=== PATIENT | male | born 2000 | race Two or more races ===

== ENCOUNTER 2020-08-25 15:01 | Outpatient (REF) | payer OTHER, SELFPAY | END 2020-08-25 15:02 | disposition home or self-care (01) | LOC: HO.LAB 15:01 | PROVIDERS: PCP Pediatrics; Visit Provider Internal Medicine | DX: Z20.828 Contact with and (suspected) exposure to other viral communicable diseases (principal) | CPT/HCPCS: 36415; 87635 ==

== ENCOUNTER 2023-11-26 | Outpatient (REF) | payer OTHER, SELFPAY | END 2023-11-26 00:01 | disposition home or self-care (01) | LOC: HO.HMGCLNP | PROVIDERS: Visit Provider Internal Medicine | DX: R43.9 Unspecified disturbances of smell and taste (principal); Z11.52 Encounter for screening for COVID-19; Z20.828 Contact with and (suspected) exposure to other viral communicable diseases | CPT/HCPCS: 0241U ==

== ENCOUNTER 2023-11-26 12:24 | Outpatient (AMB) | payer OTHER, SELFPAY ==
--- NOTE | 2023-11-26 15:24 | MHC.OFFWIV ---
Intake Vital Signs 11/26/23 15:34 Height 5 ft 7 in Weight 176 lb BMI 27.6 BP 138/88 Blood Pressure Location Rt brachial Position Sitting Pulse 98 Pulse Source Pulse Oximeter Temp 98.8 F Temp Source Oral Pulse Oximetry (%) 98 Oxygen Delivery Method Room Air Intake Visit Reasons: EP night sweats swollen glands [id number] Intake Note: Pt is for swollen glands, fevers, and feeling light headed. Pt states it started November 24. Patient Tobacco Use Status: Never used Tobacco Allergies No Known Allergies [No Known Allergies*] Allergy (Verified 11/26/23 15:43) Medication List - Last Reconciled 11/26/23 by Glenn Zelaya MD No Known Home Meds Do you need a note to return to daycare/school/sports/work: Yes HPI EP night sweats swollen glands [id number] HPI Details Patient presents for a sick visit. Reporting symptoms of sinus congestion, sore throat and difficulty swallowing. Low-grade fever. No family member is sick. No recent travel. Patient reports symptoms of malaise and fatigue. PFSH Social History Patient Tobacco Use Status: Never used Tobacco Physical Exam Vital Signs: Last Vital Signs Temp 98.8 F 11/26/23 15:34 Pulse 98 11/26/23 15:34 BP 138/88 11/26/23 15:34 Pulse Ox 98 11/26/23 15:34 Oxygen Delivery Method Room Air 11/26/23 15:34 BMI result Body Mass Index 27.6 Const General: cooperative and healthy appearing Nutritional Appearance: well nourished Orientation/consciousness: patient oriented x3 Limitations: no limitations HEENT Head: Yes normal to inspection Eyes General: appearance normal, both eyes and all related structures Neck Neck: Yes normal visual inspection Chest Chest palpation & inspection: normal palpation of entire chest wall Resp Effort & Inspection: normal respiratory effort Neuro General: patient oriented x3 Assessment & Plan Assessment & Plan (1) Upper respiratory tract infection: Code(s): J06.9 - Acute upper respiratory infection, unspecified Plan: Antibiotics ordered. Increase fluid intake. Tylenol for aches and pains. If symptoms worsen, follow-up here for a recheck. Coding Level of Care Code Est Pt Level 3 (57731) Diagnoses Upper respiratory tract infection J06.9
[2023-11-26 15:34] VITALS: BP 138/88; PULSE 98; TEMP 37.1; O2SAT 98; BMI 27.6
== END 2023-11-26 16:08 | disposition home or self-care (01) ==
PROVIDERS: PCP Pediatrics; Visit Provider Internal Medicine
DX: J06.9 Acute upper respiratory infection, unspecified (principal)
CPT/HCPCS: 99213

== ENCOUNTER 2024-12-01 12:23 | Outpatient (AMB) | payer OTHER, SELFPAY ==
--- NOTE | 2024-12-01 12:24 | A.OFFPC_ITS ---
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 Accompanied by: Self / Same As Patient Allergies No Known Allergies [No Known Allergies*] Allergy (Verified 12/01/24 13:26) Medication List - Last Reconciled 12/01/24 by MY Anthony No Known Home Meds Tobacco use date assessed: 12/01/24 Dental Screening Dental Screen Date: 12/01/24 Did you have a dental visit in the last 12 months?: Yes Did you have a dental problem in the last 6 months where you did not have access to dental care?: No Was dental information given to patient?: Patient has dentist HPI ASSISTANT MANAGER TRAINEE- PE request HPI Details History of Present Illness The patient is a 24-year-old male presenting with headaches. The headaches have been occurring intermittently over the past two years. The patient describes the sensation as pressure throughout his entire head, which he points to as a generalized area of discomfort. The headaches are sporadic in nature, typically present in the morning, and lack a consistent pattern. Recently, the patient reported photophobia accompanying the headaches but denies associated nausea, vomiting, or sonophobia. The patient observed an increase in frequency correlated with increased vaping activity and is attempting to cease vaping as a result. He has undergone a recent eye examination, and no ocular causes were identified. Previous medical consultations have suggested possible migraines but there has been no imaging performed to date. Health Maintenance - Discussion on vaping cessation to redu ce headache incidence. Social History - The patient is attempting to quit vapi ng. Review of Systems Physical Exam General: Cooperative, healthy appearing, comfortable, no acute distress and well developed Orientation: Patient oriented x3 Limitations: No limitations Head: intact bilat Ears: Hearing grossly normal bilaterally Nose: Normal external nose present Face and sinus: Normal facial exam Eyes: Appearance normal, both eyes and all related structures. Recent eye exam reported as fine. Neck: Normal visual inspection and Yes full ROM Respiratory: Normal respiratory effort and able to speak in complete sentences. Clear to auscultation bilaterally Cardiovascular: Regular rate and rhythm. Normal S1 and S2 GI: Normal to inspection. Soft to palpation and nontender Skin: No rashes or lesions noted Neuro: Patient oriented x3. Reports photophobia sometimes with headaches. Cn 2- 12 intact, neg heel to levine, finger to thumb, neg rhomberg, neg arm pull test Extremities: Normal to inspection Results Plan - I will prescribe a low dose of Naproxe n to be taken as needed for headache management. - A CT scan of the brain will be ordered to evaluate potential causes of the headaches. Patient was informed and verbally consented to the use of an ambient scribe for clinic note documentation during this visit. Discussion Notes I discussed with the patient the likely diagnosis of migraines and the management strategies we can employ. We explored the option of Naproxen for symptomatic relief, considering the patient's report of photophobia, yet absence of nausea and vomiting, which aligns with migraine characteristics. I educated the patient on the exacerbating impact of vaping on his headaches and strongly encouraged cessation, detailing the potential benefits for his condition. We agreed on the necessity of imaging, such as a CT scan, to further assess the headaches and exclude other potential concerns. The patient was informed about the follow-up for discussing the imaging results and further management based on findings. Patient Instructions - Begin taking Naproxen as needed for he adache relief. - Reduce or eliminate vaping to observe any changes in headache frequency. - Follow up for a scheduled CT scan to i nvestigate the cause of headaches. - Keep a headache diary to monitor frequ ency, duration, and triggers. [facility] Surgical History [place] teeth extracted Family History Father Hypertension Pre-diabetes Mother No problems noted. Social History Housing: Condominium Patient Tobacco Use Status: Never used Tobacco e-Cigarette/Vaping Use: Currently Using service: No Current occupational status: employed Cognitive needs: No Hearing needs: No Vision needs: No Questionnaire PHQ-9 Over the last 2 weeks, how often have you been bothered by any of the following problems? 1. Little interest or pleasure in doing things: not at all 2. Feeling down, depressed, or hopeless: not at all 3. Trouble falling or staying asleep, or sleeping too much: more than half the days 4. Feeling tired or having little energy: several days 5. Poor appetite or overeating: several days 6. Feeling bad about yourself - or that you are a failure or have let yourself or your family down: not at all 7. Trouble concentrating on things, such as reading the newspaper or watching television: not at all 8. Moving or speaking so slowly that other people could have noticed. Or the opposite - being so fidgety or restless that you have been moving around a lot more than usual: not at all 9. Thoughts that you would be better off or of hurting yourself in some way: not at all Total score: 4 Depression Screening Interpretation: Negative Depression Screening Done: Yes 84922 - PHQ-9 Billing: Yes Source: Developed by Drs. Emmett High, Edie Calvo, Tavo Groves and colleagues, with an educational nereida from [employer]. Thrive Questionnaire Date Thrive assessed: 12/01/24 I am a: Patient What is your living situation today?: I have a steady place to live Within the past 12 months, did the food you bought not last and you didn't have the money to get more?: Never true Within the past 12 months, did you worry whether your food would run out before you got money to buy more?: Never true Do you have trouble paying for medicines?: I choose not to answer this question Do you have trouble getting transportation to medical appointments?: No Do you have trouble paying your heating and electricity bill?: No Do you have trouble taking care of your child, family member or friend?: No Do you have trouble with day-to-day activities such as bathing, preparing meals, shopping, managing finances, etc.?: No Are you currently unemployed and looking for a job?: No Are you interested in more education?: No Please select the resources that you would like help with: None Currently or been in a relationship where the following occur: No concerns reported THRIVE Score: 0 AUDIT C Alcohol Use Questionnaire (AUDIT-C) 1. How often do you have a drink containing alcohol?: 2-4 times a month 2. How many drinks containing alcohol do you have on a typical day when you are drinking?: 3 or 4 3. How often do you have six or more drinks on one occasion?: Less than monthly Total Score: 4 Score Reviewed/Action Taken: Yes MARYELLEN-7 AMB Questionnaire MARYELLEN-7 Date MARYELLEN - 7 assessed: 12/01/24 Feeling nervous, anxious, or on edge: 1 = Several days Not being able to stop or control worryin = Several days Worrying too much about different things: 3 = Nearly every day Trouble relaxin = Several days Being so restless that it is hard to sit still: 0 = Not at all Becoming easily annoyed or irritable: 1 = Several days Feeling afraid as if something awful might happen: 1 = Several days Total MARYELLEN-7 score (0-4 normal; 5-9 mild; 10-14 moderate; 15-21 severe): 8 Source: Developed by Drs. Emmett High, Edie Calvo, Tavo Groves and colleagues, with an educational nereida from [employer]. MARYELLEN-7 Assessment Billing MARYELLEN-7 Assessment Tool: MARYELLEN-7 Assessment 49458 Physical exam (Primary Care) Vital Signs: Last Vital Signs Pulse 97 12/01/24 12:25 BP 118/76 12/01/24 12:25 Pulse Ox 88 L 12/01/24 12:25 Oxygen Delivery Method Room Air 12/01/24 12:25 BMI result Body Mass Index 31.2 Tobacco/Smoking Status: Tobacco use Status Tobacco use date assessed 12/01/24 12/01/24 12:31 Patient Tobacco Use Status Never used Tobacco 12/01/24 12:31 e-Cigarette/Vaping Use Currently Using 12/01/24 12:31 PHQ-9: PHQ-9 Score PHQ-9: Total score 4 12/01/24 12:57 Depression Screening Interpretation: Negative Thrive Assessment: Date of Thrive Assessment Date Thrive assessed 12/01/24 12/01/24 12:31 Currently or been in a relationship where the following occur: No concerns reported Office Procedures Flu Questionnaire Does the patient have a severe egg allergy?: No Does the patient have severe life threatening allergies?: No Does the patient have a fever or illness today?: No Has the patient ever had Guillain-[place] Syndrome?: No Has the patient ever had any past reaction to a flu shot?: No Immunizations Fluarix Triv [id number] (PF) 45 mcg (15 mcg x 3)/0.5 mL IM syringe Performing Provider: URSZULA Anthony [place]forming Location[place] [facility] Administered by: Samuel Iraheta CMA on 12/01/24 13:14 Dose Route Admin Location Dispensed Lot Number Expiration Date [employer] 0.5 mL IM Left Deltoid 0.5 mL [id number] 05/24/25 [id number] [place] VIS Given Date VIS Provided VIS Publication Date 12/01/24 Single Vaccine 21 Eligibility Eligibility Date Funding Source Not [facility] Eligible 12/01/24 Private Coding Level of Care Code New Pt Prev Care 18-39yr(86036 Diagnoses Physical exam Z00.00 Headache R51.9 Additional Codes MARYELLEN-7 Assessment Billing - MARYELLEN-7 Assessment Tool: MARYELLEN-7 Assessment 99462 ([id number]) PHQ-9 - 05806 - PHQ-9 Billing: Yes ([id number]) Assessment & Plan Assessment & Plan (1) Physical exam: Code(s): Z00.00 - Encounter for general adult medical examination without abnormal findings Category: Medical (2) Headache: Code(s): R51.9 - Headache, unspecified Category: Medical Plan . Orders: Orders Complete Blood Count Auto Diff Today Z00.00 - Encounter for general adult medical examination without abnormal findings Comprehensive [place]. Panel Fast Today Z00.00 - Encounter for general adult medical examination without abnormal findings TSH reflex Free T4 Today Z00.00 - Encounter for general adult medical examination without abnormal findings UA CC w/rflx Micro + Cult Today Z00.00 - Encounter for general adult medical examination without abnormal findings CT head/brain wo IV con Today R51.9 - Headache, unspecified Lipid Panel Today Z00.00 - Encounter for general adult medical examination without abnormal findings Influenza [id number] Immunization Today Z23 - Encounter for immunization Medications: New naproxen 500 mg PO BID 30 days PRN 60 tabs 0RF headache
[2024-12-01 12:25] VITALS: BP 118/76; PULSE 88; O2SAT 98; BMI 31.2
== END 2024-12-01 13:22 | disposition home or self-care (01) ==
PROVIDERS: PCP Nurse Practitioner Family; Visit Provider Nurse Practitioner Family
DX: Z00.00 Encounter for general adult medical examination without abnormal findings (principal); R51.9 Headache, unspecified; Z23 Encounter for immunization

== ENCOUNTER → 2024-12-01 12:23 | Outpatient (BNVA) | payer OTHER, SELFPAY | PROVIDERS: PCP Nurse Practitioner Family; Visit Provider Nurse Practitioner Family | DX: Z00.00 Encounter for general adult medical examination without abnormal findings (principal); R51.9 Headache, unspecified; Z23 Encounter for immunization | CPT/HCPCS: 90471; 90656; 96127; 99385 ==

== ENCOUNTER 2024-12-07 01:13 | Emergency (ER) | payer OTHER, SELFPAY ==
[2024-12-07 01:19] VITALS: BP 121/59; PULSE 88; RESP 18; TEMP 36.6; O2SAT 99; BMI 30.5
--- NOTE | 2024-12-07 01:32 | ED_ITS ---
HPI - General Adult General Chief complaint: Eye Problems Stated complaint: right eye pain and obstruction Time Seen by Provider: 12/07/24 01:32 History of Present Illness ED Provider: Hever ARITA narrative: The patient is a 24-year-old male who has been concerned about his eyes for several weeks or even maybe months. He has had multiple complaints including light sensitivity, a sense of floaters, a sense of generalized eye discomfort, sometimes a sense of something being in the eye. He also said ?I feel my right eye is loose. ? He saw an hvac mechanical engineer in the last couple of weeks who could find no problem. Today he was looking at his right eye and he thought that there was an area of indentation of the conjunctiva of the medial aspect of the right eye. He was very concerned about this and came to the emergency room. He also says that he feels like something must be wrong with the eye and that perhaps something is in the eye although he does not recall getting anything in the eye. The patient has also had headaches. He recently obtained a new primary care doctor. He had a new patient appointment with Caleb Matos last week who has an ordered a CT of the brain to be done sometime in the next couple of weeks. Related Data Previous Rx's ?Medication ?Instructions ?Recorded naproxen 500 mg tablet 500 mg PO BID PRN headache 30 days 12/01/24 #60 tabs Allergies Allergy/AdvReac Type Severity Reaction Status Date / Time No Known Allergies Allergy Verified 12/07/24 01:22 [No Known Allergies*] Review of Systems Review of Systems: Yes all other systems are reviewed and are negative PMFSH Past Medical History Surgical History [place] teeth extracted Family History Family History Father Hypertension Pre-diabetes Mother No problems noted. Social History Social History Housing: Condominium Patient Tobacco Use Status: Never used Tobacco Smoked in Last 30 Days: No e-Cigarette/Vaping Use: Currently Using Use of substances other than those prescribed or required for medical reasons: No Advance Directives: No Advance Directives Information Provided: Yes Do you have a plan to hurt others: No Plan service: No Current occupational status: employed Cognitive needs: No Hearing needs: No Vision needs: No Physical Exam ED Vital Signs: Vital Signs - 24 hr 12/07/24 01:19 12/07/24 02:20 12/07/24 02:24 Temperature 97.8 F 98.1 F 98.1 F Pulse Rate 88 74 74 Respiratory Rate 18 18 18 Blood Pressure 121/59 L 128/53 L 128/53 L Pulse Oximetry 99 97 97 Oxygen Delivery Method Room Air Room Air Room Air BMI result Body Mass Index 30.5 Const Other: The patient is awake and alert. He does not appear acutely ill. He has the appearance of an ordinarily healthy 24-year-old. HENMT Other: Face is symmetrical and unremarkable. No abnormalities to the face. Eyes Other: Pupils are round, equal, and reactive to light. Conjunctivae are clear. I do not appreciate any abnormality to the medial conjunctiva of the right eye. No conjunctival injection. No scleral icterus. Extraocular movements are intact. Funduscopic exam is normal. Visual acuity is 20/20 in both eyes. Slit-lamp exam did not reveal any obvious subtle abnormality to the conjunctiva. There was no perilimbal flushing. Corneas appeared clear. The anterior chamber appeared clear. Fluorescein staining revealed no corneal uptake. Right eye eyelid eversion revealed no foreign body. Neck Neck: Yes full ROM Resp Effort & Inspection: normal respiratory effort Skin Other: Skin is dry and unremarkable Neuro Other: The patient is awake and alert with a normal mental status. I felt he had a somewhat anxious affect. Pupils are round, equal, and reactive to light, extraocular movements are intact, the patient is 2020 bilaterally. Funduscopic exam is unremarkable. Face is symmetrical. Speech is clear. He moves his extremities normally. Gait is normal. He seems neurologically intact. Extrem Other: No peripheral edema Medications Administered Discontinued Medications Generic Name Dose Route Start Last Admin Trade Name Dequan PRN Reason Stop Dose Admin Fluorescein Sodium 1 strip 12/07/24 01:49 12/07/24 01:56 Fluorescein Sodium Strip EYE-BOTH 12/07/24 01:50 1 strip ONCE ONE Administration Tetracaine HCl 3 drop 12/07/24 01:49 12/07/24 01:56 Tetracaine Hcl 0.5% Oph [place] 5 Ml Drops EYE-BOTH 12/07/24 01:50 3 drop ONCE ONE Administration Medical Decision Making Medical Decision Making MDM Narrative: The patient is generally healthy 24-year-old who presents for evaluation of right eye symptoms that has been bothering him for some time. His vision is excellent. I do not find any abnormalities on his physical exam in the emergency room. There is no foreign body in the eye. I do not feel there is an acute ocular or ophthalmological emergency. I think he may be discharged to follow up with an medication manager. He was referred to Dr. Lewis. Discharge Plan Discharge Clinical Impression: Discomfort of right eye Patient Disposition: Home, Self-Care Additional Instructions: At the moment I am not finding anything obviously wrong with your right eye. Your vision seems quite good in both eyes. Please contact the ophthalmology office, Dr. Lewis's office, in the morning and schedule a follow up appointment for an evaluation by an medication manager. Return to the emergency room if significantly worse. Prescriptions: No Action naproxen 500 mg tablet 500 mg PO BID PRN (Reason: headache) 30 Days Qty: 60 0RF Referrals: Mirza Lewis [Physician] - (right eye symptoms) Interventions: ED Discharge Assessment Last Done: 12/07/24 02:24 Discharge Date/Time: 12/07/24 02:24 Print Language: Burmese
--- NOTE | 2024-12-07 01:43 | PC.NURSE ---
Provider to bedside for primary eval. Visual acuity performed 20/20 both eyes.
[2024-12-07] MEDS: Tetracaine HCl 0.5% Oph Sol 5 ML DROPS 3 DROP EYE-BOTH (01:56)
[2024-12-07] MEDS: Fluorescein Sodium STRIP 1 STRIP EYE-BOTH (01:56)
[2024-12-07 02:20] VITALS: BP 128/53; PULSE 74; RESP 18; TEMP 36.7; O2SAT 97
[2024-12-07 02:24] VITALS: BP 128/53; PULSE 74; RESP 18; TEMP 36.7; O2SAT 97
== END 2024-12-07 02:24 | disposition home or self-care (01) ==
PROVIDERS: Emergency Provider Emergency Medicine; PCP Nurse Practitioner Family
DX: H57.11 Ocular pain, right eye (principal); R51.9 Headache, unspecified
CPT/HCPCS: 99283; 99284

== ENCOUNTER 2024-12-17 10:41 | Outpatient (REF) | payer OTHER, SELFPAY ==
[2024-12-17 13:19] LABS: MANUAL DIFF FLAG NO
[2024-12-17 13:43] LABS: Basophils Percent Auto 0.7 % (0-2); Eosinophils Absolute Auto 0.2 X10*3/uL (0.0-0.4); Eosinophils Percent Auto 2.5 % (0-4); Hematocrit 46.7 % (42.0-52.0); Hemoglobin 15.4 g/dl (14.0-18.0); Imm Gran Abs Auto 0.01 X10*3/uL (0.00-0.03); Imm Gran Pct Auto 0.2 % (0.0-0.4); Lymphocytes Absolute Auto 2.4 X10*3/uL (1.2-4.9); Lymphocytes Percent Auto 40.8 % (20-40); Mean Corpuscular Hemoglobin 30.6 pg (27.0-33.0); Mean Corpuscular Volume 92.8 fL (80.0-98.0); Monocytes Absolute Auto 0.6 X10*3/uL (0.1-1.2); Monocytes Percent Auto 9.5 % (2-11); Neutrophils Absolute Auto 2.8 x10*3/uL (2.0-8.3); Neutrophils Percent Auto 46.3 % (45-73); Platelet Count 352 X10*3/uL (160-400); Red Blood Count 5.03 X10*6/uL (4.60-5.80); Red Cell Distribution Width 12.5 % (11.0-16.0)
[2024-12-17 13:53] LABS: Appearance Urine Clear; Color Urine Yellow; Glucose Urine UA Negative (Negative); Leukocyte Esterase Urine Negative (Negative); Nitrite Urine Negative (Negative); PH 6.5 (5.0-9.0); Urine Blood Negative (Negative); Urine Ketones Negative (Negative); Urine Protein Negative (Neg-Trace)
[2024-12-17 14:14] LABS: Alanine Aminotransferase 21 U/L (0-40); Albumin Level 4.6 g/dL (3.5-5.0); Alkaline Phosphatase 73 U/L (39-117); Anion Gap 10 (12-20); Aspartate Amino Transferase 27 U/L (5-37); Bilirubin Total 0.9 mg/dL (0.0-1.0); Blood Urea Nitrogen 13 mg/dL (9-16); Carbon Dioxide 27 mmol/L (22-29); Chloride 106 mmol/L (96-108); Cholesterol 180 mg/dL (<200); Estimated Glomerular Filt Rate > 60; Glucose Fasting 79 mg/dL (60-99); HDL Cholesterol 57 mg/dL (>40); LDL Cholesterol Calculated 110 mg/dL (<100); Sodium 139 mmol/L (135-145); Total Protein 7.7 g/dL (6.5-8.0); Triglycerides 65 mg/dL (<150)
[2024-12-17 14:17] LABS: TSH reflex Free T4 0.85 uIU/mL (0.32-4.0)
== END 2024-12-17 10:42 | disposition home or self-care (01) ==
LOC: HO.HMGCLDS 10:41
PROVIDERS: PCP Nurse Practitioner Family; Visit Provider Nurse Practitioner Family
DX: Z00.00 Encounter for general adult medical examination without abnormal findings (principal); Z13.9 Encounter for screening, unspecified
CPT/HCPCS: 36415; 80053; 80061; 81003; 84443; 85025

== ENCOUNTER 2025-04-05 12:58 | Outpatient (AMB) | payer OTHER, SELFPAY ==
[2025-04-05 12:59] VITALS: BP 118/62; PULSE 77; O2SAT 98; BMI 31.3
--- NOTE | 2025-04-05 12:59 | MHC.PC.OV ---
Vital Signs 04/05/25 12:59 Height 5 ft 7 in Weight 200 lb BMI 31.3 BP 118/62 Blood Pressure Location Rt brachial Position Sitting Pulse 77 Pulse Source Pulse Oximeter Pulse Oximetry (%) 98 Intake Visit Reasons: 4 months f/up Calciner Feeder Required: No Accompanied by: Self / Same As Patient Allergies No Known Allergies [No Known Allergies*] Allergy (Verified 04/05/25 13:31) Medication List - Last Reconciled 04/05/25 by MY Anthony naproxen 500 mg PO BID PRN 30 days Tobacco use date assessed: 12/01/24 Dental Screening Dental Screen Date: 12/01/24 HPI 4 months f/up HPI Details Chief Complaint The patient presents with headaches. The patient presents with headaches. History of Present Illness The patient is a 24-year-old male presenting with headaches. The history of this condition is characterized by a new onset that had warranted the consideration of head imaging, though this was yet to be completed due to insurance denial. As part of managing his condition, the patient has been adhering to a medication regimen which has resulted in a reduction in the frequency of headaches (use of naproxen prn). He undertook lifestyle changes by reducing vaping, reporting subsequent improvement. Despite these measures, he continues to experience some eye pressure and episodes of blurred vision. An evaluation by an java scala developer returned normal results. The patient is a 24-year-old male presenting with headaches. The history of this condition is characterized by a new onset that had warranted the consideration of head imaging, though this was yet to be completed due to insurance denial. As part of managing his condition, the patient has been adhering to a medication regimen which has resulted in a reduction in the frequency of headaches. He undertook lifestyle changes by reducing vaping, reporting subsequent improvement. Despite these measures, he continues to experience some eye pressure and episodes of blurred vision. An evaluation by an java scala developer returned normal results. GERD: will send omeprazole Social History - The patient reports having reduced vaping, leading to some symptomatic improvement. - The patient reports having reduced vaping, leading to some symptomatic improvement. Health Maintenance Review of Systems - Neurological: Reports headaches, intermittent blurred vision. - Visual: Reports pressure behind eyes. - General: Denies visual abnormalities on recent ophthalmology evaluation. - Neurological: Reports headaches, intermittent blurred vision. - Visual: Reports pressure behind eyes. - General: Denies visual abnormalities on recent ophthalmology evaluation. Physical Exam General: Cooperative, healthy appearing, comfortable, no acute distress and well developed Orientation: Patient oriented x3 Limitations: No limitations Head: Normal to inspection Ears: Hearing grossly normal bilaterally Nose: Normal external nose present Face and sinus: Normal facial exam Eyes: Appearance normal, both eyes and all related structures, but reports intermittent blurred vision and some pressure behind eyes Neck: Normal visual inspection and Yes full ROM Respiratory: Normal respiratory effort and able to speak in complete sentences. Clear to auscultation bilaterally Cardiovascular: Regular rate and rhythm. Normal S1 and S2 GI: Normal to inspection. Soft to palpation and nontender Skin: No rashes or lesions noted Neuro: CN 2 through 12 intact. Patient oriented x3. Negative Romberg. Healed to levine was intact. Finger to thumb was intact. Arm pull test was negative. Extremities: Normal to inspection Results Plan The patient is advised to continue his current medication regimen, which has shown effectiveness in reducing headache frequency. Reducing vaping has yielded positive changes, and sustaining this lifestyle adjustment is recommended. A follow-up with neurology in one month is advised, anticipating that imaging may be conducted to further evaluate the new onset headaches. The neurology team's insight will assist in precisely identifying and managing any underlying conditions contributing to the headaches. The patient is advised to continue his current medication regimen, which has shown effectiveness in reducing headache frequency. Reducing vaping has yielded positive changes, and sustaining this lifestyle adjustment is recommended. A follow-up with neurology in one month is advised, anticipating that imaging may be conducted to further evaluate the new onset headaches. The neurology team's insight will assist in precisely identifying and managing any underlying conditions contributing to the headaches. Discussion Notes During the consultation, we discussed the management options for the patient's new onset headaches, including lifestyle modifications and the continuation of the current medication regimen. I emphasized the importance of the upcoming neurology appointment to consider the necessity of head imaging, even if initially denied by insurance. Follow-up and symptom management strategies were discussed, alongside lifestyle modifications such as the reduction in vaping, which the patient has initiated. I look forward to feedback from the neurologist, which will guide further management. During the consultation, we discussed the management options for the patient's new onset headaches, including lifestyle modifications and the continuation of the current medication regimen. I emphasized the importance of the upcoming neurology appointment to consider the necessity of head imaging, even if initially denied by insurance. Follow-up and symptom management strategies were discussed, alongside lifestyle modifications such as the reduction in vaping, which the patient has initiated. I look forward to feedback from the neurologist, which will guide further management. Patient Instructions - Continue the prescribed headache medication as previously directed. - Maintain reduced vaping habit to alleviate symptoms. - Schedule and attend a follow-up appointment with the neurology department in one month. - Monitor and record any changes in headache frequency or severity. - Seek immediate medical care if symptoms worsen significantly. - Continue the prescribed headache medication as previously directed. - Maintain reduced vaping habit to alleviate symptoms. - Attend a follow-up appointment with the neurology department in one month. - Monitor and record any changes in headache frequency or severity. - Seek immediate medical care if symptoms worsen significantly. [facility] Medical History Hypercalciuria Obesity Acanthosis nigricans Scoliosis Iron deficiency anemia Lumbar disc herniation Pes planus Surgical History [place] teeth extracted Family History Father Hypertension Pre-diabetes Mother No problems noted. Social History Housing: Condominium Patient Tobacco Use Status: Never used Tobacco e-Cigarette/Vaping Use: Currently Using service: No Current occupational status: employed Cognitive needs: No Hearing needs: No Vision needs: No Questionnaire Thrive Questionnaire Date Thrive assessed: 04/05/25 I am a: Patient What is your living situation today?: I have a steady place to live Within the past 12 months, did the food you bought not last and you didn't have the money to get more?: Never true Within the past 12 months, did you worry whether your food would run out before you got money to buy more?: Never true Do you have trouble paying for medicines?: I choose not to answer this question Do you have trouble getting transportation to medical appointments?: No Do you have trouble paying your heating and electricity bill?: No Do you have trouble taking care of your child, family member or friend?: No Do you have trouble with day-to-day activities such as bathing, preparing meals, shopping, managing finances, etc.?: No Are you currently unemployed and looking for a job?: No Are you interested in more education?: No Please select the resources that you would like help with: None Currently or been in a relationship where the following occur: No concerns reported THRIVE Score: 0 MARYELLEN-7 AMB Questionnaire MARYELLEN-7 Date MARYELLEN - 7 assessed: 12/01/24 Source: Developed by Drs. Emmett High, Edie Calvo, Tavo Groves and colleagues, with an educational nereida from [employer]. Physical exam (Primary Care) Vital Signs: Last Vital Signs Pulse 77 04/05/25 12:59 BP 118/62 04/05/25 12:59 Pulse Ox 98 04/05/25 12:59 BMI result Body Mass Index 31.3 Tobacco/Smoking Status: Tobacco use Status Tobacco use date assessed 12/01/24 04/05/25 13:01 Patient Tobacco Use Status Never used Tobacco 04/05/25 13:01 e-Cigarette/Vaping Use Currently Using 04/05/25 13:01 Thrive Assessment: Date of Thrive Assessment Date Thrive assessed 04/05/25 04/05/25 13:01 Currently or been in a relationship where the following occur: No concerns reported Coding Level of Care Code Est Pt Level 3 (80356) Diagnoses Headache R51.9 Assessment & Plan Assessment & Plan (1) Headache: Code(s): R51.9 - Headache, unspecified Category: Medical Plan . Medications: New omeprazole 20 mg PO DAILY 90 caps 0RF
--- OUTSIDE RECORDS SUMMARY | 2025-04-05 13:18 | XMS_ITS | Clinical Summary ---
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 - d/c'd [address] Ramos at [facility] Renal 05/06 - trial off HCTZ, did well Dr Ramos 06/07 - doing well, nl renal ultrasound, recheck one year Referred back 07/09 Dr Ramos, labs and ultrasound nl March 2016; recheck one year Episode of LLQ pain and microscopic hematuria 10/10 - sent to ER, ultrasound and KUB neg, given IV fluids and IV morphine To followup with nephrology - seen 10/04/16 -Dr Ramos, - likely passed a very small calcification or stone; ordered 24 hr urine for calcium; serum PTH, uric acid, calcium Vit D, renal function; to continue good hydration and low sodium diet; recheck [address] Ramos 05/11 - chemistries ordered; renal ultrasound; recheck [address] Ramos 04/12 - recent 7 mm stone; 24 hour urine to be done; low oxalate diet, increase citric juices and water 3-4 L/day; recheck one year Resolved Problems Problem Noted Date Diagnosed Date Resolved Date Hematuria syndrome 01/12/2020 Chronic low back pain 09/01/20192020 Overview (01/12/2020): 09/12 - Sports Med consult, xrays nl, naproxyn and PT referral Renal stone 04/03/2019 07/24/2021 Overview (01/12/2020): 04/12 - R side 7 mm stone; lithotripsy rx at [facility] Dr Black Weight loss 10/06/2018 07/24/2021 Overview (01/12/2020): 07/12 - intentional. CMP nl 10/12 Hypertrophy of tonsil 07/24/20182020 Overview (01/12/2020): Assymetric 07/11, ref to ENT, seen 09/10, tonsils described as hypertrophied but symmetric Referred again 07/12 for lesion L tonsil - Dr Parks - 2 cm papilloma of L tonsil and tonsillar hypertrophy, L>R, At surgery 08/12 had large papilloma; entire tonsil removed; bx: papillary lymphoid hyperplasia, most likley a reactive process; benign; no further rx needed Tal[place] planus 07/25/2017 07/24/2021 Right lower zone pneumonia 10/01/2015 0 07/24/2021 Overview (01/12/2020): RLL 10/09 with wheezing - zithromax and prednisone, then flovent for 2 wks Gynecomastia 07/14/2015 07/24/2021 Overview (01/12/2020): 07/09 Iron deficiency anemia 07/08/201407/24 Overview (01/12/2020): Mild 07/08, multivit with iron Resolved 07/11 Scoliosis 07/02/2013 07/24/2021 Overview (01/12/2020): 07/07, mild, 5 deg on scoliometer Acanthosis nigricans 04/26/2011 021 Acute sinusitis 04/11/2011 07/24/2021 Overview (01/12/2020): 02/02, 11/06 Streptococcal sore throat 04/05/2010 Overview (01/12/2020): 04/03, 05/04, 08/04, started low dose PCN 09/03 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 07/24/2021 Overview (01/12/2020): face Obesity 06/12/2007 07/24/2021 Overview (01/12/2020): mild since age 4, wt control clinic 12/02 with nl labs Nl fasting labs 06/02, 06/04(x LDL 125) Elevated LDL 07/06, ref to nutrition and recheck labs and weight 6 mos 07/12- resolved after lifestyle changes Otitis media 09/25/2006 07/24/2021 Overview (01/12/2020): 08/25, 2001x2, 02/25, 2003x2, 3.05, 08/30, 09/30, 10/09 IMO update Immunizations Immunization Administration Dates Next Due DTP 2000,2000,2000 DTaP 05/14/2005,11/27/2001 DTaP / HiB / IPV 08/18/2001, 0,2000,07/24 H1N1 Inj Preservative Free 10/14/2009 HPV, Quadrivalent 01/13/2015,09/09/2014,07/08/20 14 Hep B, Adolescent or Pediatric 02/17/2001,1999,2000 IPV 05/14/2005, 1,2000,07/24 Influenza (IM) Preservative Free 018,01/16/2018,09/03/2016,09/05,09/28/2014,08/20/2013,09/03/2011 Influenza TIV (IM) 10/13/2020, 2,10/12/2010,09/25,11/11/2007,10/08/2007 Influenza, MDCK, PF, Quadrivalent 08/05/2019 Influenza, Quadrivalent, Pre servative Free 10/13/2020 MMR 05/14/2005,08/18/2001 Meningococcal MCV4P 07/12/2016,06/22/2011 Pneumococcal Conjugate 11/15/2001,2000,2000,07/24 Tdap 06/22/2011 Varicella 06/22/2010,2001 Family History Medical History Relation Comments Cancer Father Diabetes Father Hypertension Mother Relation Status Comments Father Alive Mother Alive Social History Tobacco Use Types Packs/Day Years Used Date Smoking Tobacco: Never Alcohol Use Standard Drinks/Week Comments No 0 (1 standard drink = 0.6 oz pur e alcohol) Sex and Gender Information Value Date Recorded Sex Assigned at Not on file Legal Sex Male 4:34 PM EST Gender Identity Not on file Sexual Orientation Not on file Last Filed Vital Signs Vital Sign Reading Time Taken Comments Blood Pressure 112/68 04/09/2019 12:00 PM EDT Pulse 74 04/09/2019 12:00 PM EDT Temperature - - Respiratory Rate 16 04/09/2019 12:00 PM EDT Oxygen Saturation - - Inhaled Oxygen Concentration - - Weight 77.1 kg (170 lb) 04/09/2019 12:00 PM EDT Height 170.2 cm (5' 7 ) 04/09/2019 12:00 PM EDT Body Mass Index 26.63 04/09/2019 12:00 PM EDT Plan of Treatment Health Maintenance Due Date Last Done Comments Influenza Vaccine (Season Ended) 2025 10/13/2020, 10/13/2020, 08/05/2019, Additional history exists Hepatitis B Vaccine Completed 02/17/2001, 2000, 2000 Pneumococcal Vaccine: 50+ Years Discontinued 11/15/2001, 2001, 2000, Additional history exists Pneumococcal Vaccine: Peds (0 to 5 Years) and At-Risk Patients (6 to 49 Years) Aged Out 11/15/2001, 2001, 2000, Additional history exists No longer eligible based on patient's age to complete this topic Insurance [facility] [employer] Care Teams Butter Grader Relationship Specialty Start Date End Date Keisha Walker MD PCP - General 09/29/19
== END 2025-04-05 13:25 | disposition home or self-care (01) ==
LOC: HO.HMCC 12:59
PROVIDERS: PCP Nurse Practitioner Family; Visit Provider Nurse Practitioner Family
DX: R51.9 Headache, unspecified (principal)

== ENCOUNTER → 2025-04-05 12:58 | Outpatient (BNVA) | payer OTHER, SELFPAY | PROVIDERS: PCP Nurse Practitioner Family; Visit Provider Nurse Practitioner Family | DX: R51.9 Headache, unspecified (principal); K21.9 Gastro-esophageal reflux disease without esophagitis | CPT/HCPCS: 99212 ==

== ENCOUNTER 2025-05-19 07:52 | Outpatient (REF) | payer OTHER, SELFPAY ==
[2025-05-19 17:54] LABS: MANUAL DIFF FLAG NO
[2025-05-19 18:21] LABS: Estimated Average Glucose 100 mg/dL; Hemoglobin A1C 128.3079 umol/L; Hemoglobin A1c % 5.1 % (<6.0)
[2025-05-19 18:27] LABS: Alanine Aminotransferase 71 U/L (0-40); Albumin Level 4.8 g/dL (3.5-5.0); Alkaline Phosphatase 85 U/L (39-117); Anion Gap 13 (12-20); Aspartate Amino Transferase 48 U/L (5-37); Bilirubin Total 0.6 mg/dL (0.0-1.0); Blood Urea Nitrogen 14 mg/dL (9-16); C Reactive Protein 0.18 mg/dL (< or = 0.50); Calcium 9.6 mg/dL (8.4-10.2); Carbon Dioxide 23 mmol/L (22-29); Chloride 106 mmol/L (96-108); Estimated Glomerular Filt Rate > 60; Glucose Random 79 mg/dL (60-115); Potassium 4.2 mmol/L (3.3-5.1); Sodium 138 mmol/L (135-145); Total Protein 7.4 g/dL (6.5-8.0)
[2025-05-19 18:32] LABS: Rheumatoid Factor < 13.0 IU/mL (<15.0)
[2025-05-19 18:44] LABS: Basophils Percent Auto 0.7 % (0-2); Eosinophils Absolute Auto 0.1 X10*3/uL (0.0-0.4); Eosinophils Percent Auto 3.1 % (0-4); Hematocrit 44.6 % (42.0-52.0); Hemoglobin 15.2 g/dl (14.0-18.0); Imm Gran Abs Auto 0.01 X10*3/uL (0.00-0.03); Imm Gran Pct Auto 0.2 % (0.0-0.4); Lymphocytes Absolute Auto 1.7 X10*3/uL (1.2-4.9); Lymphocytes Percent Auto 41.4 % (20-40); Mean Corpuscular HGB Conc 34.1 g/dl (31.0-36.0); Mean Corpuscular Hemoglobin 30.8 pg (27.0-33.0); Mean Corpuscular Volume 90.3 fL (80.0-98.0); Mean Platelet Volume 10.9 fL (9.4-12.4); Monocytes Absolute Auto 0.4 X10*3/uL (0.1-1.2); Monocytes Percent Auto 9.9 % (2-11); Neutrophils Absolute Auto 1.9 x10*3/uL (2.0-8.3); Neutrophils Percent Auto 44.7 % (45-73); Platelet Count 318 X10*3/uL (160-400); Red Blood Count 4.94 X10*6/uL (4.60-5.80); Red Cell Distribution Width 12.4 % (11.0-16.0); White Blood Count 4.2 X10*3/uL (4.8-10.8)
[2025-05-19 19:01] LABS: Folate 6.9 ng/mL (> or = 4.0); Vitamin B12 566 pg/mL (200-900)
[2025-05-19 19:18] LABS: Erythrocyte Sedimentation Rate 2 MM/HR (0-15)
[2025-05-20 10:09] LABS: Lyme Abs Screen <0.90 index
[2025-05-21 11:43] LABS: Anti Nuclear Antibody Screen NEGATIVE (NEGATIVE)
[2025-05-21 21:19] LABS: Arsenic, Blood <3 mcg/L (<23); Lead, Blood <1.0 mcg/dL (<3.5); Mercury, Blood <4 mcg/L (<=10)
== END 2025-05-19 07:53 | disposition home or self-care (01) ==
LOC: HO.HKASLDS 07:52
PROVIDERS: PCP Nurse Practitioner Family; Visit Provider Nurse Practitioner Family
DX: R51.9 Headache, unspecified (principal); H53.2 Diplopia; R09.81 Nasal congestion; H53.9 Unspecified visual disturbance; D64.9 Anemia, unspecified; Z72.0 Tobacco use
CPT/HCPCS: 36415; 80053; 82175; 82607; 82746; 83036; 83655; 83825; 85025; 85652; 86038; 86140; 86431; 86617; 86618; 99202

== ENCOUNTER 2025-05-19 07:52 | Outpatient (AMB) | payer OTHER, SELFPAY ==
[2025-05-19 07:54] VITALS: BP 132/84; PULSE 83; O2SAT 99; BMI 32.4
--- NOTE | 2025-05-19 07:54 | MHC.OFFVIS ---
Vital Signs 05/19/25 07:54 Height 5 ft 7 in Weight 207 lb 2 oz BMI 32.4 BP 132/84 Blood Pressure Location Rt brachial Position Sitting Pulse 83 Pulse Source Pulse Oximeter Pulse Oximetry (%) 99 Oxygen Delivery Method Room Air Intake Visit Reasons: INP-Headache Intake Note: Pt presents to the office today as a new patient for headaches. Allergies No Known Allergies (No Known Allergies*) Allergy (Verified 05/19/25 07:57) Medication List - Last Reconciled 05/19/25 by TANIKA Morse naproxen 500 mg PO BID PRN 30 days omeprazole 20 mg PO DAILY HPI Comments Details: History of Present Illness The patient is a 25-year-old male presenting with headache. The headaches began one to two years ago, initially triggered by heavy smoking of vapes, with a nagging pain on the left side of the head. The pain has since spread to the forehead and temples, with episodes lasting from a few minutes to an hour. The patient reports light sensitivity and seeing stars, which has worsened over the past year, requiring him to wear sunglasses outdoors. He experiences static vision even in the dark and has been evaluated by an eye doctor, who found no abnormalities. The patient has a history of a herniated disc at S1, which occurred five to six years ago due to deadlifting. He no longer deadlifts but continues to exercise regularly, including playing softball four to five times a week. He has a history of kidney stones, with the last episode occurring seven to eight years ago, treated with lithotripsy. The patient has been advised to avoid certain foods that may contribute to stone formation. The patient reports anxiety, which he associates with his recent cessation of vaping and transition to nicotine pouches. He has a family history of depression, which he is mindful of in managing his mental health. Past Medical History - Herniated disc at S1, treated with manager career - History of kidney stones, treated with lithotripsy Family History - Depression in mother - Diabetes in father Family history of migraine: Denies Family history of other headache disorder: Denies Review of Systems - Neurological: Reports headaches with light sensitivity and visual disturbances. Denies history of concussions or seizures. Diplopia-elicited by tugging on eyelids-states he never had this before. - Musculoskeletal: Reports history of herniated disc at S1. Denies current neck pain or injuries. - Psychiatric: Reports anxiety. Denies history of depression or other psychiatric disorders. - Genitourinary: Reports history of kidney stones. Denies current urinary symptoms. - Respiratory: Denies asthma, COPD, or respiratory issues. - Reproductive health status: Desire for family planning: Discussing with partner, not immediate Pertinent denies: Denies TMJ dysfunction, chronic neck pain, history of concussion or head injury, cardiovascular disease, blood clots, sickle cell disease, diabetes and thyroid issues, constipation. Results - Eye examination: Normal findings despite visual disturbances reported by the patient Medications - Naproxen 500 mg, used for headache relief with some effect Headache Lifestyle Factors - Sleep: Variable bedtime between 10 PM and 1 AM, wakes at 6 AM, reports inadequate sleep due to late softball games. - Exercise: Engages in regular physical activity, playing softball four to five times a week and working in construction, which involves physical labor. He avoids heavy lifting exercises like deadlifting due to a history of a herniated disc. - Employment: Works in [employer], variable shifts from 6:30 AM to 4:00 PM. Cognitive Health The patient demonstrates intact cognitive function with no reported issues in attention, memory recall, language, or executive function. Nutrition The patient has adjusted his diet to avoid foods that may contribute to kidney stone formation, such as high oxalate foods like spinach. Sleep - Bedtime varies between 10 PM and 1 AM, with wake-up time at 6 AM. - Reports inadequate sleep due to late softball games and variable schedule. Substance Use - Nicotine: Transitioned from vaping to nicotine pouches, reduced usage. - Alcohol: Consumes one to two drinks per week, reduced from previous levels. - Marijuana: Previously frequent use, now reduced to once or twice a week. Previous neurological care for this headache: None Headache questionnaire: Onset of initial headache symptoms: 1-2 years ago Initial precipitating cause of this headache: Heavy vaping Previous workup for this headache: None Types of headache disorders: 1 Typical headache characteristics: Prodrome symptoms: Denies Aura: Denies Headache pain intensity: Mild to moderate Location, quality, characteristics of this headache: Left side ( But maybe bilateral, more so on the left ), upper temples, forehead- Nagging, pressure-like pain Associated migraine symptoms: Light sensitivity, eye issues- eye floaters, seen constant stars, swirling lights. also endorses droopy eyelids, feeling congested. shows a picture, but of only 1 eye. however he states he is always like this. States he is always photophobic. Headache postdrome: Denies Headache aggravating factors: Alcohol Headache triggers: Alcohol, vaping Time of day this headache usually occurs: No specific time of day. the 1st attack occurred in the middle of the night. Duration of this headache: Minutes to an hour Frequency of this headache: Once or twice a day. Denies any Seasonal pattern.. How does headache impact your life? Unclear Current acute medication use/interventions: Naproxen Current preventative medication use: None Current non-pharmacological interventions: Lifestyle changes (reducing vaping, alcohol, marijuana use) [facility] Medical History (Updated 05/19/25 @ 09:19 by TANIKA Morse) Hypercalciuria Obesity Acanthosis nigricans Scoliosis Iron deficiency anemia Lumbar disc herniation Pes planus Surgical History [place] teeth extracted Family History Father Hypertension Pre-diabetes Mother No problems noted. Social History (Updated 05/19/25 @ 07:57 by Joyce Carroll CMA) Housing: Condominium Patient Tobacco Use Status: Never used Tobacco e-Cigarette/Vaping Use: Currently Using Substance Use Type: Marijuana service: No Current occupational status: employed Cognitive needs: No Hearing needs: No Vision needs: No Physical Exam Vital Signs: Last Vital Signs Pulse 83 05/19/25 07:54 BP 132/84 05/19/25 07:54 Pulse Ox 99 05/19/25 07:54 Oxygen Delivery Method Room Air 05/19/25 07:54 BMI result Body Mass Index 32.4 Const Orientation/consciousness: patient oriented x3 Resp Effort & Inspection: normal respiratory effort and able to speak in complete sentences Neuro Other: No palpable scalp tenderness. Spurling negative bilaterally General: patient oriented x3 Cranial nerves: Yes CN's II-XII intact bilaterally Cognition (Neuro): normal cognition Gait exam (Neuro): Normal gait present Motor exam (neuro): 5/5 motor strength present throughout Deep tendon reflexes (DTR's): Right triceps reflex intensity grade: 2+, Left triceps reflex intensity grade: 2+, Rt Biceps (C5, C6): 2+, Left biceps reflex intensity grade: 2+, Right brachioradialis reflex intensity grade: 2+, Left brachioradialis reflex intensity grade: 2+, Right patellar reflex intensity grade: 2+ and Left patellar reflex intensity grade: 2+ Coordination: [id number] test normal, tandem gait normal and Romberg test negative Pupils: Normal pupillary reactivity/response: bilateral Psych Appearance: grossly normal Mental Status: mental status grossly normal Speech and movement: Normal speech and movement present Affect: normal affect Attitude: cooperative Thought process: Normal thought process present Assessment & Plan Assessment & Plan (1) New onset headache: Code(s): R51.9 - Headache, unspecified Category: Medical (2) Diplopia: Code(s): H53.2 - Diplopia Category: Medical Plan Discussion Notes I discussed with the patient the potential causes of his headaches, including the possibility of trigeminal autonomic cephalalgia (TAC) and the role of lifestyle factors such as vaping and alcohol use. We reviewed the benefits of reducing nicotine and alcohol intake and the importance of adequate hydration and sleep. I recommended a brain MRI with and without contrast and an MRA/MRV brain to evaluate for any underlying structural causes. Assessment and Plan 1. Headache - Plan to perform a brain MRI/MRV with and without contrast and an MRA without contrast to assess for structural causes, such as posterior fossa processes. - Check labs for common etiologies of headache consistent with a trigeminal autonomic cephalalgia phenotype - Encourage reduction in nicotine and alcohol use, and ensure adequate hydration and sleep. - May continue naproxen 500 mg twice a day as needed. - Patient asked to take a picture of it is full face the next time he has a headache associated with eyelid drooping, congestion, watery eyes. - Headache treatment contraindications: Topiramate due to kidney stones. - Future considerations: Trial of sumatriptan, trial of indomethacin, trial of O2. 2. Herniated disc at S1 - Continue with current exercise regimen, avoiding heavy lifting. - Monitor for any exacerbation of symptoms. 3. Anxiety - Monitor symptoms, particularly in relation to nicotine cessation. - Consider further evaluation if symptoms persist. 4. History of kidney stones - Continue dietary modifications to prevent recurrence. - Monitor for any symptoms suggestive of stone formation. - Avoid topiramate. Case discussed with Dr Jessica Oquendo. Will follow-up upon review of above and patient to follow-up in clinic in 3-4 months or sooner prn. Orders: Orders MR angio head wo con 05/19/25 R51.9 - Headache, unspecified, H53.9 - Unspecified visual disturbance, H53.2 - Diplopia, Z72.0 - Tobacco use FABIENNE Reflex Titer and Pattern 05/19/25 R51.9 - Headache, unspecified, H53.2 - Diplopia, R09.81 - Nasal congestion, H53.9 - Unspecified visual disturbance, D64.9 - Anemia, unspecified, Z72.0 - Tobacco use Complete Blood Count Auto Diff 05/19/25 R51.9 - Headache, unspecified, H53.2 - Diplopia, R09.81 - Nasal congestion, H53.9 - Unspecified visual disturbance, D64.9 - Anemia, unspecified, Z72.0 - Tobacco use Comprehensive Met. Panel 05/19/25 R51.9 - Headache, unspecified, H53.2 - Diplopia, R09.81 - Nasal congestion, H53.9 - Unspecified visual disturbance, D64.9 - Anemia, unspecified, Z72.0 - Tobacco use Erythrocyte Sedimentation Rate 05/19/25 R51.9 - Headache, unspecified, H53.2 - Diplopia, R09.81 - Nasal congestion, H53.9 - Unspecified visual disturbance, D64.9 - Anemia, unspecified, Z72.0 - Tobacco use C Reactive Protein 05/19/25 R51.9 - Headache, unspecified, H53.2 - Diplopia, R09.81 - Nasal congestion, H53.9 - Unspecified visual disturbance, D64.9 - Anemia, unspecified, Z72.0 - Tobacco use Lyme IgG/IgM w/reflex to WB 05/19/25 R51.9 - Headache, unspecified, H53.2 - Diplopia, R09.81 - Nasal congestion, H53.9 - Unspecified visual disturbance, D64.9 - Anemia, unspecified, Z72.0 - Tobacco use MR head/brain wo/w con 05/19/25 R51.9 - Headache, unspecified, H53.9 - Unspecified visual disturbance, H53.2 - Diplopia, R09.81 - Nasal congestion MR venography head wo/w con 05/19/25 R51.9 - Headache, unspecified, H53.9 - Unspecified visual disturbance, H53.2 - Diplopia, R09.81 - Nasal congestion Vitamin B12 and Folate 05/19/25 R51.9 - Headache, unspecified, H53.2 - Diplopia, R09.81 - Nasal congestion, H53.9 - Unspecified visual disturbance, D64.9 - Anemia, unspecified, Z72.0 - Tobacco use Hemoglobin A1c 05/19/25 R51.9 - Headache, unspecified, H53.2 - Diplopia, R09.81 - Nasal congestion, H53.9 - Unspecified visual disturbance, D64.9 - Anemia, unspecified, Z72.0 - Tobacco use Rheumatoid Factor 05/19/25 R51.9 - Headache, unspecified, H53.2 - Diplopia, R09.81 - Nasal congestion, H53.9 - Unspecified visual disturbance, D64.9 - Anemia, unspecified, Z72.0 - Tobacco use Heavy Metals Screen Blood 05/19/25 R51.9 - Headache, unspecified, H53.2 - Diplopia, R09.81 - Nasal congestion, H53.9 - Unspecified visual disturbance, D64.9 - Anemia, unspecified, Z72.0 - Tobacco use Coding Level of Care Code New Pt Level 4 (22135) Diagnoses New onset headache R51.9 Diplopia H53.2
--- OUTSIDE RECORDS SUMMARY | 2025-05-19 07:55 | XMS_ITS | Clinical Summary ---
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
== END 2025-05-19 09:21 | disposition home or self-care (01) ==
LOC: HO.HSMS 07:52
PROVIDERS: PCP Nurse Practitioner Family; Visit Provider Nurse Practitioner Family
DX: R51.9 Headache, unspecified (principal); H53.2 Diplopia
CPT/HCPCS: 99204

== ENCOUNTER → 2025-06-25 15:53 | Outpatient (BNV) | payer OTHER, SELFPAY | PROVIDERS: PCP Nurse Practitioner Family; Visit Provider Radiology Diagnostic Radiology | DX: R51.9 Headache, unspecified (principal) | CPT/HCPCS: 70544; 70546; 70553 ==

== ENCOUNTER 2025-06-25 15:59 | Outpatient (REF) | payer OTHER, SELFPAY ==
--- NOTE | ~2025-06-25 | MR_ITS ---
EXAMINATION: MR ANGIOGRAPHY BRAIN WITHOUT CONTRAST CLINICAL INFORMATION: Headache. COMPARISON: None available. TECHNIQUE: 3-D [id number]. Maximum intensity projections [place]. FINDINGS: Anterior cerebral circulation: ICAs: Normal flow signal without focal stenosis or abrupt cut off. ICA terminus demonstrated no flow signal abnormality. MCA's: Normal flow signal. No focal stenosis. No abrupt cut off. Bifurcation/trifurcation of the ICAs demonstrated no contour irregularity. ACAs: Normal flow signal. No focal stenosis. No abrupt cut off. Anterior communicating artery flow signal is present. Ophthalmic arteries flow signal is present without gross irregularity. Posterior communicating arteries flow signal is present with slightly dominant right artery. Posterior cerebral circulation: V3/V4 segments: Right vertebral artery and seen in the right PICA. No flow signal stenosis or intimal flap. Left vertebral artery is dominant. Left PICA flow signal is normal. Basilar artery flow signal is present without focal stenosis or intimal flap. Basilar artery tip is normal. Anterior inferior cerebellar arteries flow signal is subtle/faint. Superior cerebellar arteries flow signal is normal. order processing specialist: Normal flow signal without abrupt cut off or focal stenosis. MR/MR angio head wo con IMPRESSION: No focal stenosis main cerebral artery occlusion and or embolus. No cerebral aneurysm. Left vertebral artery is dominant. Right vertebral artery ends in a right PICA. Electronically signed by: Fredy Rodgers MD 06/28/2025 07:53 AM EDT
--- NOTE | ~2025-06-25 | MR_ITS ---
EXAMINATION: MR venogram brain without and without IV contrast. CLINICAL INFORMATION: Headache. TECHNIQUE: Coronal 2-D [id number]. Coronal 2-D maximum intensity projections. Sagittal and coronal TWIST. Total of 10 cc of gadolinium based contrast given without reported immediate complications. COMPARISON: Correlated to MRI brain dated June 25, 2025. FINDINGS: Superior sagittal sinus, internal cerebral veins, vein of Ac, straight sinus, transverse and sigmoid sinuses and jugular bulbs are patent without focal stenosis or intraluminal filling defects. There is slight dominant left transverse and sigmoid sinuses. MR/MR venography head wo/w con IMPRESSION: No main cerebral venous sinus thrombosis. Normal MRV brain. Electronically signed by: Fredy Rodgers MD 06/28/2025 07:57 AM EDT
--- NOTE | ~2025-06-25 | MR_ITS ---
EXAMINATION: MR BRAIN WITHOUT AND WITH CONTRAST CLINICAL INFORMATION: Headache, unspecified. COMPARISON: None available. TECHNIQUE: Multiplanar, multisequence MRI of the brain was obtained before and after the intravenous administration of 10.0 mL gadolinium based without reported immediate complications.. FINDINGS: No restricted diffusion. No acute intracranial hemorrhage, mass effect, midline shift, hydrocephalus or herniation. Seay-white matter differentiation is normal. Posterior cranial fossa contents demonstrated no signal abnormality or enhancing lesion. Normal position of the cerebellar tonsils. Sellar/suprasellar region is normal. No abnormal enhancement within the intra-axial or the extra-axial compartment of the cranium. Flow-void signal within the main cerebral vessels is normal. Hyperintense T2 FLAIR signal in the left mastoid tip. Mucosal thickening, ethmoid air cells and to a lesser extent frontal sinus. There is a 9 mm hyperintense T2 signal left ethmoid air cells. No enhancing lesion in the intraconal or the extraconal compartment of the cranium. MR/MR head/brain wo/w con IMPRESSION: No acute or structural brain abnormality. No abnormal enhancement. Paranasal sinus disease likely old/chronic, ethmoid air cells with questionable retention cyst on the left ethmoid. Electronically signed by: Fredy Rodgers MD 06/28/2025 07:46 AM EDT
--- OUTSIDE RECORDS SUMMARY | 2025-06-25 16:03 | XMS_ITS ---
Author Name [facility] Organization Unknown Care Team Organization Name Specialty Phone Email Start Date End Da te [facility] Lucinda Roman Primary Care 04/01/2023 024 [facility] Yordan Baig Primary Care 02/26/20232023 [facility] Xochilt Elliott Primary Care 10/02/20222023
--- OUTSIDE RECORDS SUMMARY | 2025-06-25 16:03 | XMS_ITS | Clinical Summary ---
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 - d/c'd [address] Ramos at [facility] Renal 05/06 - trial off HCTZ, did [...] side 7 mm stone; lithotripsy rx at [facility] [address] [facility] Weight loss 10/06/2018 [...] Due Date Last Done Comments Influenza Vaccine (#1) 2025 0, 10/13/2020, 08/05/2019, Additional history exists Hepatitis B Vaccine Completed 02/17/2001, 2000, 2000 Pneumococcal Vaccine: 50+ Years Discontinued 11/15/2001, 2001, 2000, Additional history exists Pneumococcal Vaccine: Peds (0 to 5 Years) and At-Risk Patients (6 to 49 Years) Aged Out 11/15/2001, 2001, 2000, Additional history exists No longer eligible based on patient's age to complete this topic Insurance [facility] Healthnet Care Teams Bunch Maker Relationship Specialty Start Date End Date Keisha Walker MD PCP - General 09/29/19
== END 2025-06-25 16:00 | disposition home or self-care (01) ==
LOC: HO.MRI 15:59
PROVIDERS: PCP Nurse Practitioner Family; Visit Provider Nurse Practitioner Family
DX: R51.9 Headache, unspecified (principal); H53.9 Unspecified visual disturbance; H53.2 Diplopia; R09.81 Nasal congestion; Z72.0 Tobacco use
CPT/HCPCS: 70544; 70546; 70553; A9585

== ENCOUNTER 2025-07-22 07:25 | Outpatient (AMB) | payer OTHER, SELFPAY ==
--- NOTE | 2025-07-22 07:27 | A.OFFVIS_ITS ---
Vital Signs 07/22/25 07:28 Height 5 ft 7 in Weight 214 lb 8 oz BMI 33.6 BP 112/70 Blood Pressure Location Rt brachial Position Sitting Pulse 62 Pulse Source Pulse Oximeter Pulse Oximetry (%) 99 Oxygen Delivery Method Room Air Intake Visit Reasons: 8 wks f/u Intake Note: Patient presents follow up for Diplopia Skiing Teacher Required: No Accompanied by: Self / Same As Patient Allergies No Known Allergies (No Known Allergies*) Allergy (Verified 07/22/25 07:28) Medication List - Last Reconciled 07/22/25 by TANIKA Morse naproxen 500 mg PO BID PRN 30 days omeprazole 20 mg PO DAILY HPI Comments Details: 25-year-old male presents for follow-up of headache. Patient reports he has not had any interval headaches since he stopped vaping. 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 His last eye exam at [facility] results were reported as within normal limits He can have some allergy symptoms at time, not overly bothersome. He is continuing to exercise on a regular basis, playing softball during the warmer seasons and gym-based exercises in the colder weather. 06/25/2025 MR/MR head/brain wo/w con * No acute or structural brain abnormality. * No abnormal enhancement. * Paranasal sinus disease is likely old/chronic, ethmoid air cells with questionable retention cyst on the left ethmoid. 06/25/2025 MR/MR angio head wo con * No focal stenosis main cerebral artery occlusion and or embolus. * No cerebral aneurysm. * Left vertebral artery is dominant. * Right vertebral artery ends in a right PICA. 06/25/2025 MR/MR venography head wo/w con * No main cerebral venous sinus thrombosis. Normal MRV brain. History of Present Illness The patient is a 25-year-old male presenting with headache. The headaches began one to two years ago, initially triggered by heavy smoking of vapes, with a nagging pain on the left side of the head. The pain has since spread to the forehead and temples, with episodes lasting from a few minutes to an hour. The patient reports light sensitivity and seeing stars, which has worsened over the past year, requiring him to wear sunglasses outdoors. He experiences static vision even in the dark and has been evaluated by an eye doctor, who found no abnormalities. The patient has a history of a herniated disc at S1, which occurred five to six years ago due to deadlifting. He no longer deadlifts but continues to exercise regularly, including playing softball four to five times a week. He has a history of kidney stones, with the last episode occurring seven to eight years ago, treated with lithotripsy. The patient has been advised to avoid certain foods that may contribute to stone formation. The patient reports anxiety, which he associates with his recent cessation of vaping and transition to nicotine pouches. He has a family history of depression, which he is mindful of in managing his mental health. Past Medical History - Herniated disc at S1, treated with health care attorney - History of kidney stones, treated with lithotripsy Family History - Depression in mother - Diabetes in father Family history of migraine: Denies Family history of other headache disorder: Denies Review of Systems - Neurological: Reports headaches with light sensitivity and visual disturbances. Denies history of concussions or seizures. Diplopia-elicited by tugging on eyelids-states he never had this before. - Musculoskeletal: Reports history of herniated disc at S1. Denies current neck pain or injuries. - Psychiatric: Reports anxiety. Denies history of depression or other psychiatric disorders. - Genitourinary: Reports history of kidney stones. Denies current urinary symptoms. - Respiratory: Denies asthma, COPD, or respiratory issues. - Reproductive health status: * Desire for family planning: Discussing with partner, not immediate Pertinent denies: Denies TMJ dysfunction, chronic neck pain, history of concus fior or head injury, cardiovascular disease, blood clots, sickle cell disease, diabetes and thyroid issues, constipation. Results - Eye examination: Normal findings despite visual disturbances reported by the patient Medications - Naproxen 500 mg, used for headache relief with some effect Headache Lifestyle Factors - Sleep: Variable bedtime between 10 PM and 1 AM, wakes at 6 AM, reports inadequ ate sleep due to late softball games. - Exercise: Engages in regular physical activity, playing softball four to five times a week and working in construction, which involves physical labor. He avoids heavy lifting exercises like deadlifting due to a history of a herniated disc. - Employment: Works in [employer] variable shifts from 6:30 AM to 4:00 PM. Cognitive Health The patient demonstrates intact cognitive function with no reported issues in attention, memory recall, language, or executive function. Nutrition The patient has adjusted his diet to avoid foods that may contribute to kidney stone formation, such as high oxalate foods like spinach. Sleep - Bedtime varies between 10 PM and 1 AM, with wake-up time at 6 AM. - Reports inadequate sleep due to late softball games and variable schedule. Substance Use - Nicotine: Transitioned from vaping to nicotine pouches, reduced usage. - Alcohol: Consumes one to two drinks per week, reduced from previous levels. - Marijuana: Previously frequent use, now reduced to once or twice a week. Previous neurological care for this headache: None Headache questionnaire: Onset of initial headache symptoms: 1-2 years ago Initial precipitating cause of this headache: Heavy vaping Previous workup for this headache: None Types of headache disorders: 1 Typical headache characteristics: Prodrome symptoms: Denies Aura: Denies Headache pain intensity: Mild to moderate Location, quality, characteristics of this headache: Left side ( But maybe bilateral, more so on the left ), upper temples, forehead- Nagging, pressure- like pain Associated migraine symptoms: Light sensitivity, eye issues- eye floaters, seen constant stars, swirling lights. also endorses droopy eyelids, feeling congested. shows a picture, but of only 1 eye. however he states he is always like this. States he is always photophobic. Headache postdrome: Denies Headache aggravating factors: Alcohol Headache triggers: Alcohol, vaping Time of day this headache usually occurs: No specific time of day. the 1st attack occurred in the middle of the night. Duration of this headache: Minutes to an hour Frequency of this headache: Once or twice a day. Denies any Seasonal pattern.. How does headache impact your life? Unclear Current acute medication use/interventions: Naproxen Current preventative medication use: None Current non-pharmacological interventions: Lifestyle changes (reducing vaping, alcohol, marijuana use) [facility] Medical History (Updated 05/31/25 @ 11:57 by TANIKA Morse) Hypercalciuria Obesity Acanthosis nigricans Scoliosis Iron deficiency anemia Lumbar disc herniation Pes planus Surgical History [place] teeth extracted Family History Father Hypertension Pre-diabetes Mother No problems noted. Social History Housing: Condominium Patient Tobacco Use Status: Never used Tobacco e-Cigarette/Vaping Use: Currently Using Substance Use Type: Marijuana service: No Current occupational status: employed Cognitive needs: No Hearing needs: No Vision needs: No Physical Exam Vital Signs: Last Vital Signs Pulse 62 07/22/25 07:28 BP 112/70 07/22/25 07:28 Pulse Ox 99 07/22/25 07:28 Oxygen Delivery Method Room Air 07/22/25 07:28 BMI result Body Mass Index 33.6 Const Orientation/consciousness: patient oriented x3 Resp Effort & Inspection: normal respiratory effort and able to speak in complete sentences Neuro General: patient oriented x3 Cranial nerves: Yes CN's II-XII intact bilaterally Cognition (Neuro): normal cognition Gait exam (Neuro): Normal gait present Motor exam (neuro): 5/5 motor strength present throughout Pupils: Normal pupillary reactivity/response: bilateral Psych Appearance: grossly normal Mental Status: mental status grossly normal Speech and movement: Normal speech and movement present Affect: normal affect Attitude: cooperative Thought process: Normal thought process present Assessment & Plan Assessment & Plan (1) New onset headache: Code(s): R51.9 - Headache, unspecified Category: Medical (2) Diplopia: Code(s): H53.2 - Diplopia Category: Medical Plan For headache: * Reviewed 06/25/2025 brain MRI w/wo, brain MRA w/o, and brain MRV w/wo results- overall unremarkable, though there is note of chronic paranasal sinus inflammation. * Advised to reach out worsening sinus condition symptoms * Labs as ordered- for common etiologies of headache consistent with a trigeminal autonomic cephalalgia phenotype * Continue to optimize overall healthy lifestyle factors, including eating an overall healthy diet, taking sufficient fluids, engaging in regular physical activity, maintaining a regular sleep schedule * Avoid nicotine and vaping-as these do seem to be significant triggers for this patient. * May continue naproxen 500 mg twice a day as needed. * Take a picture of it is full face the next time he has a headache associated with eyelid drooping, congestion, watery eyes. * Headache treatment contraindications: Topiramate due to kidney stones. * Future considerations: Trial of sumatriptan, trial of indomethacin, trial of O2. For visual snow symptoms: * Recent head imaging results, including brain MRI/MRA/MRV are reassuring. * Last eye exam in November 2024, was unremarkable * Continue teardrops as ordered by Ophthalmology * Follow-up with ophthalmology as scheduled * If the symptoms persists, could consider treating with a migraine aura pre ventative agent, such as amitriptyline or lamotrigine. Will follow-up upon review of above and patient to follow-up in clinic in 6 months or sooner prn. Coding Level of Care Code Est Pt Level 4 (37515) Diagnoses New onset headache R51.9 Diplopia H53.2
[2025-07-22 07:28] VITALS: BP 112/70; PULSE 62; O2SAT 99; BMI 33.6
--- OUTSIDE RECORDS SUMMARY | 2025-07-22 07:29 | XMS_ITS | Clinical Summary ---
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
--- OUTSIDE RECORDS SUMMARY | 2025-07-22 07:29 | XMS_ITS | Encounter Summary ---
Author Organization [facility] Address [address] [place] [address] Care Team Providers Care Bilingual Recruiter Name Role Phone Keisha Walker MD Primary Care Provider [facility] Lucinda Mcgraw MD Primary Care Provider [phone] Encounter Details Date Type Department Care Team Description 04/09/2019 Station Inspector Report Medical Records [address] [place] [id number] Ermias Cao MD Social History Tobacco Use Types Packs/Day Years Used Date Smoking Tobacco: Never Smokeless Tobacco: Never Alcohol Use Standard Drinks/Week Comments No 0 (1 standard drink = 0.6 oz pur e alcohol) Sex Assigned at Date Recorded Not on file documented as of this encounter Plan of Treatment Not on file documented as of this encounter Visit Diagnoses Not on filedocumented in this encounter Care Teams Bilingual Recruiter Relationship Specialty Start Date End Date Keisha Walker MD PCP - General 00 07/23/22 Lucinda Roman MD [address] [place] [phone] PCP - General Internal Medicine 07/24/22 documented as of this encounter
--- OUTSIDE RECORDS SUMMARY | 2025-07-22 07:29 | XMS_ITS | Encounter Summary ---
Author Organization [facility] Address [address] [place] [address] Care Team Providers Care Pediatric Occupational Therapist Name Role Phone Keisha Walker MD Primary Care Provider [facility] Lucinda Mcgraw MD Primary Care Provider [phone] Encounter Details Date Type Department Care Team Description 07/29/2012 Futures Trader Report Medical Records [address] [place] [address] Ermias Cao MD Social History Tobacco Use Types Packs/Day Years Used Date Smoking Tobacco: Never Alcohol Use Standard Drinks/Week Comments Not Asked 0 (1 standard drink = 0.6 oz pur e alcohol) Sex Assigned at Date Recorded Not on file documented as of this encounter Plan of Treatment Not on file documented as of this encounter Visit Diagnoses Not on filedocumented in this encounter Care Teams Pediatric Occupational Therapist Relationship Specialty Start Date End Date Keisha Walker MD PCP - General 00 07/23/22 Lucinda Roman MD [address] [place] [address] [phone] PCP - General Internal Medicine 07/24/22 documented as of this encounter
--- OUTSIDE RECORDS SUMMARY | 2025-07-22 07:29 | XMS_ITS | Encounter Summary ---
Author Organization [facility] Address [address] [place] [address] Care Team Providers Care Helium Arc Welder Name Role Phone Keisha Walker MD Primary Care Provider Lucinda Ibanez MD Primary Care Provider [phone] Encounter Details Date Type Department Care Team Description 06/14/2020 Orders Only [facility] [place] [address] [place] [address] Ant Bond MD Advice Given About Covid-19 Virus by Telephone Social History Tobacco Use Types Packs/Day Years Used Date Smoking Tobacco: Never Smokeless Tobacco: Never Alcohol Use Standard Drinks/Week Comments No 0 (1 standard drink = 0.6 oz pur e alcohol) Sex Assigned at Date Recorded Not on file documented as of this encounter Plan of Treatment Not on file documented as of this encounter Procedures Procedure Name Priority Date/Time Associated Diagnosis Comments CHG IADNA SARS-COV-2 COVID-19 AMPLIFIED PROBE TQ Routine 06/09/2020 Advice Given About Covid-19 Virus by Telephone documented in this encounter Results * COVID-19 TESTING (06/09/2020) 06/09/2020 Ant Bond MD [facility] documented in this encounter Visit Diagnoses Diagnosis Advice given about COVID-19 virus by telephone documented in this encounter Care Teams Helium Arc Welder Relationship Specialty Start Date End Date Keisha Walker MD PCP - General 00 07/23/22 Lucinda Roman MD [address] [place] [id number] PCP - General Internal Medicine 07/24/22 documented as of this encounter
--- OUTSIDE RECORDS SUMMARY | 2025-07-22 07:29 | XMS_ITS | Encounter Summary ---
Author Organization [facility] Address [address] [place] [address] Care Team Providers Care Services Mgr Name Role Phone Keisha Walker MD Primary Care Provider [facility] Lucinda Mcgraw MD Primary Care Provider [phone] Encounter Details Date Type Department Care Team Description 05/16/2017 Crew Truck Driver Report Medical Records [address] [place] [address] Ermias Cao MD Social History Tobacco Use [...] on filedocumented in this encounter Care Teams Services Mgr Relationship Specialty Start Date End Date Keisha Walker MD PCP - General 00 07/23/22 Lucinda Roman MD [address] [place] [phone] PCP - General Internal Medicine 07/24/22 documented as of this encounter
--- OUTSIDE RECORDS SUMMARY | 2025-07-22 07:29 | XMS_ITS | Encounter Summary ---
Author Organization [facility] Address [address] [place] [address] Care Team Providers Care Risk Management Consultant Name Role Phone Keisha Walker MD Primary Care Provider [facility] Lucinda Mcgraw MD Primary Care Provider [phone] Encounter Details Date Type Department Care Team Description 03/25/2019 Hospital Medical Records [address] [place] [address] Venu Black. Social History Tobacco Use Types Packs/Day Years [...] on filedocumented in this encounter Care Teams Risk Management Consultant Relationship Specialty Start Date End Date Keisha Walker MD PCP - General 00 07/23/22 Lucinda Roman MD [address] [place], [place] [phone] PCP - General Internal Medicine 07/24/22 documented as of this encounter
--- OUTSIDE RECORDS SUMMARY | 2025-07-22 07:29 | XMS_ITS | Encounter Summary ---
Author Organization [facility] Address [address] [place] [address] Care Team Providers Care Patent Prosecution Paralegal Name Role Phone Keisha Walker MD Primary Care Provider Lucinda Ibanez MD Primary Care Provider [phone] Encounter Details Date Type Department Care Team Description 01/19/2021 Old Medical Records Medical Records [address] [place] [address] Rehab., [place] Social History Tobacco Use Types Packs/Day Years Used Date Smoking Tobacco: Never Smokeless Tobacco: Never Alcohol Use Standard Drinks/Week Comments No 0 (1 standard drink = 0.6 oz pur e alcohol) Sex Assigned at Date Recorded Not on file COVID-19 Exposure Response Date Recorded In the last month, have you been in contact with someone who was confirmed or suspected to have Coronavirus / COVID-19? No / Unsure 12/29/2020 10:17 AM EST documented as of this encounter Plan of Treatment Not on file documented as of this encounter Visit Diagnoses Not on filedocumented in this encounter Care Teams Patent Prosecution Paralegal Relationship Specialty Start Date End Date Keisha Walker MD PCP - General 00 07/23/22 Lucinda Roman MD [address] [place] [address] PCP - General Internal Medicine 07/24/22 documented as of this encounter
--- OUTSIDE RECORDS SUMMARY | 2025-07-22 07:29 | XMS_ITS | Encounter Summary ---
Author Organization [facility] Address [address] [place] [address] Care Team Providers Care Cardiovascular Technologist Name Role Phone Keisha Walker MD Primary Care Provider [facility] Lucinda Mcgraw MD Primary Care Provider [phone] Encounter Details Date Type Department Care Team Description 04/19/2016 Oil Well Driller Report Medical Records [address] [place] [address] Ermias Cao MD Social History Tobacco Use [...] on filedocumented in this encounter Care Teams Cardiovascular Technologist Relationship Specialty Start Date End Date Keisha Walker MD PCP - General 00 07/23/22 Lucinda Roman MD [address] [place] [address] [phone] PCP - General Internal Medicine 07/24/22 documented as of this encounter
--- OUTSIDE RECORDS SUMMARY | 2025-07-22 07:29 | XMS_ITS | Encounter Summary ---
Author Organization [facility] Address [address] [place] [address] Care Team Providers Care Inspector Brake Lining Name Role Phone Keisha Walker MD Primary Care Provider Lucinda Ibanez MD Primary Care Provider [phone] Encounter Details Date Type Department Care Team Description 12/24/2019 Release of Information Medical Records [address] [place] [id number] Abstract, Provider Social History Tobacco Use Types Packs/Day Years [...] on filedocumented in this encounter Care Teams Inspector Brake Lining Relationship Specialty Start Date End Date Keisha Walker MD PCP - General 00 07/23/22 Lucinda Roman MD [address] [place], [place] [phone] PCP - General Internal Medicine 07/24/22 documented as of this encounter
--- OUTSIDE RECORDS SUMMARY | 2025-07-22 07:29 | XMS_ITS | Encounter Summary ---
Author Organization [facility] Address [address] [place] [address] Care Team Providers Care Waiter/Waitress Dining Car Name Role Phone Keisha Walker MD Primary Care Provider Lucinda Ibanez MD Primary Care Provider [phone] Encounter Details Date Type Department Care Team Description 11/29/2020 SCAN Medical Records [address] [place] [id number] Abstract, Provider Social History Tobacco Use Types [...] have Coronavirus / COVID-19? No / Unsure 11/11/2020 9:49 AM EST documented as of this encounter Plan of Treatment Not on file documented as of this encounter Visit Diagnoses Not on filedocumented in this encounter Care Teams Waiter/Waitress Dining Car Relationship Specialty Start Date End Date Keisha Walker MD PCP - General 00 07/23/22 Lucinda Roman MD [address] [place] [address] [phone] PCP - General Internal Medicine 07/24/22 documented as of this encounter
--- OUTSIDE RECORDS SUMMARY | 2025-07-22 07:29 | XMS_ITS | Encounter Summary ---
Author Organization [facility] Address [address] [place] [address] Care Team Providers Care Physician'S Aide Name Role Phone Keisha Walker MD Primary Care Provider [facility] Lucinda Mcgraw MD Primary Care Provider [phone] Encounter Details Date Type Department Care Team Description 04/05/2010 Barista Report Medical Records [address] [place] [address] Ermias Cao MD Social History Tobacco Use [...] on filedocumented in this encounter Care Teams Physician'S Aide Relationship Specialty Start Date End Date Keisha Walker MD PCP - General 00 07/23/22 Lucinda Roman MD [address] [place] [address] [phone] PCP - General Internal Medicine 07/24/22 documented as of this encounter
--- OUTSIDE RECORDS SUMMARY | 2025-07-22 07:29 | XMS_ITS | Clinical Summary ---
Author Organization [facility] Address [address] [facility] [place] [address] Care Team Providers Care Senior Contract Specialist Name Role Phone Lucinda Roman MD Primary Care Provider [phone] Medications Medication Sig Dispensed Refills Start Date End Date Status pantoprazole (PROTONIX) 20 MG tablet Take 1 Tablet by mouth daily for 90 days. 30 Tablet 2 11/28/2022 Active Active Problems Problem Noted Date COVID-19 virus infection 09/07/2020 Overview: 09/13 EKG nl at 11/13 Chronic midline low back pain without sc iatica 09/01/2019 Overview: 09/12 - Sports Med consult, xrays nl, naproxyn and PT referral 12/14- MRI showed lumbar disc herniation - chiro, PT 12/15 - Physiatry consult, L5S1 injection with improvement in sx Renal stone 04/03/2019 Overview: 04/12 - R side 7 mm stone; lithotripsy rx at [facility] Black Weight loss 10/06/2018 Overview: 07/12 - intentional. CMP nl 10/12 Hypertrophy of tonsils 07/24/2018 Overview: Assymetric 07/11, ref to ENT, seen 09/10, tonsils described as hypertrophied but symmetric Referred again 07/12 for lesion L tonsil - Dr Parks - 2 cm papilloma of L tonsil and tonsillar hypertrophy, L>R, At surgery 08/12 had large papilloma; entire tonsil removed; bx: papillary lymphoid hyperplasia, most likley a reactive process; benign; no further rx needed Pes planus of both feet 07/25/2017 pneumonia 10/01/2015 Overview: RLL 10/09 with wheezing - zithromax and prednisone, then flovent for 2 wks Gynecomastia, male 07/14/2015 Overview: 07/09 Iron deficiency anemia 07/08/2014 Overview: Mild 07/08, multivit with iron Resolved 07/11 Scoliosis 07/02/2013 Overview: 07/07, mild, 5 deg on scoliometer Acanthosis nigricans 04/26/2011 Acute sinusitis 04/11/2011 Overview: 02/02, 11/06 Strep throat 04/05/2010 Overview: 04/03, 05/04, 08/04, started low dose PCN 09/03 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 Overview: face overweight 06/12/2007 Overview: mild since age 4, wt control clinic 12/02 with nl labs Nl fasting labs 06/02, 06/04(x LDL 125) Elevated LDL 07/06, ref to nutrition and recheck labs and weight 6 mos 07/12- resolved after lifestyle changes Otitis media 09/25/2006 Overview: 08/25, 2001x2, 02/25, 2003x2, 3.05, 08/30, 09/30, 10/09 IMO update Hypercalciuria 05/20/2006 Overview: microscopic hematuria on routine urine dip at age 5, workup by dr ramos, started hydrochlorthiazide 09/29 Also placed on potassium citrate for hypocitraturia - d/c'd [address] Ramos at [facility] Renal 05/06 - trial off HCTZ, [...] and water 3-4 L/day; recheck one year 06/13 - Dr Ramos - stable, to have renal US and urine chemistries; if stable recheck one year 07/14- US showed nonobstructing bilat renal calculi, no hydronephrosis 11/13 - Dr Ramos requested referral to Urology, 24 hour urine collection, apt for followup 02/12 07/15- Dr Ramos, labs perfect, renal US ordered; recheck one year Resolved Problems Problem Noted Date Resolved Date Mick-Schlatter's disease 08/20/201307/25 Overview: Resolved as of 07/11 Allergic rhinitis 06/19/2011 06/26/2012 Overview: 02/02 flonase and loratadine Headache disorder 06/10/2009 07/12/2016 Overview: 04/02, with snoring, sleep study scheduled but not done; snoring resolved Nl eye exam 02/04 Other speech disturbance 05/20/200606/20/ 009 Overview: speech rx at age 3, hearing nl at [facility] update overlapping 2nd and 3rd toes, bilat 05/20/2006 06/22/2010 Overview: seen by dr gotti, 06/28, no rx Viral GASTROENTERITIS 2000 01/29/2007 Overview: hosp. [facility] Immunizations Name Administration Dates Next Due COVID-19 (Pfizer) 12/06/2021,01/30/2021,01/09/20 21 DTP 2000,2000,2000 DTaP 05/14/2005,11/27/2001 HIB 08/18/2001, 0,2000,07/24 HPV (Gardasil) 01/13/2015,09/09/2014,07/08/2014 Hepatitis B-3 Dose (<19yrs) 02/17/2001, 0,2000 Influenza (> 6 Months) 10/13/2020,2011,10/12/2010,09/25,11/11/2007,10/08/2007 Influenza (>6 Months) Split Preservative Free 10/06/2018,01/16/2018,09/03/2016,09/05,09/28/2014,08/20/2013,09/03/2011 Influenza H1N1 Pandemic Flu Vaccine 10/14/2009 Influenza Vaccine-preservati ve Free-quadrivalent 4 Years 08/05/2019 MMR (Jihzqfb-Chcwk-Ifbmizw) 05/14/2005, 1 Meningococcal (Menactra) 07/12/2016,06/22/2011 Pneumococcal(Pedi) Conjugate PCV-7 11/15,2001,2000,07/24 Polio (IPV) 05/14/2005, 1,2000,07/24 Tdap 06/22/2011 Varicella 06/22/2010,2001 Family History Medical History Relation Name Comments Asthma Father microscopic hematuria Father Allergies Mother Asthma Mother Sleep Apnea Mother Cancer, Other Other 1 paternal side Kidney Stones Other 1 Migraines Other 1 MGM, mat uncle, cousin heart Other 2 both sides substance abuse Other 3 paternal unc le Blindness Negative Hx Cataract Negative Hx Glaucoma Negative Hx Macular Degeneration Negative Hx Strabismus Negative Hx Relation Name Status Comments Father Alive Braulio Reyes 1 961 Mother Alive Marsha Alvarez 195 Other 1 Other 2 Other 3 Sister 1 Alive 1/2 sister Turner Reyes 1985 Sister 2 Alive 1/2 sister Natasha Reyes 1986 Social History Tobacco Use Types Packs/Day Years Used Date Smoking Tobacco: Never Smokeless Tobacco: Never Tobacco Cessation:Counseling Given: Not Answered Alcohol Use Standard Drinks/Week Comments No 0 (1 standard drink = 0.6 oz pur e alcohol) Sex Assigned at Date Recorded Not on file Last Filed Vital Signs Vital Sign Reading Time Taken Comments Blood Pressure 134/72 11/28/2022 2:28 PM EST Pulse 87 12/29/2020 10:21 AM EST Temperature 36.7 C (98 F) 11/11/2020 9:58 AM EST Respiratory Rate 12 12/21/2020 8:10 AM EST Oxygen Saturation 99% 10/06/2015 8:59 AM EST Inhaled Oxygen Concentration - - Weight 88 kg (194 lb) 11/28/2022 2:08 PM EST Height 170.2 cm (5' 7 ) 11/28/2022 2:08 PM EST Body Mass Index 30.38 11/28/2022 2:08 PM EST Plan of Treatment Health Maintenance Due Date Last Done Comments DTAP/TDAP/TD (7 - Td or Tdap) 06/22/2021, 05/14/2005, 11/27/2001, Additional history exists Covid-19 Vaccine (2022-2 4 season) 2024 12/06/2021, 01/30/2021, 01/09/2021 BMI CHECK/ADVISE 11/25/2024 11/28/2022, 02/2021, 12/07/2020, Additional history exists DEPRESSION SCREENING/FOLLOWUP 11/25/2024, 11/11/2020, 08/05/2019 SOCIAL NEEDS SCREENING 11/25/2024 , 11/11/2020, 08/05/2019 INFLUENZA (#1) 2025 10/13/2020, 07/26, 10/06/2018, Additional history exists BASELINE HEALTH EXAM 18-39 11/11/202511/11, 08/05/2019, 07/30/2018, Additional history exists CHOLESTEROL SCREENING 11/28/2027 11/28/2022 , 07/25/2017, 07/14/2015, Additional history exists PNEUMOCOCCAL VACCINE FOR HIG H RISK PATIENTS (#1) 2065 HUMAN PAPILLOMAVIRUS (HPV) Completed 01/13, 09/09/2014, 07/08/2014 Care Teams Senior Contract Specialist Relationship Specialty Start Date End Date Lucinda Roman MD [address] [place] [address] [id number] PCP - General Internal Medicine 07/24/22
--- OUTSIDE RECORDS SUMMARY | 2025-07-22 07:29 | XMS_ITS | Encounter Summary ---
Author Organization [facility] Address [address] [place] [address] Care Team Providers Care Laborer Airport Maintenance Name Role Phone Keisha Walker MD Primary Care Provider [facility] Lucinda Mcgraw MD Primary Care Provider [phone] Encounter Details Date Type Department Care Team Description 10/04/2010 Supervisor Printing And Stamping Report Medical Records [address] [place] [address] Ermias Cao MD Social History Tobacco Use [...] on filedocumented in this encounter Care Teams Laborer Airport Maintenance Relationship Specialty Start Date End Date Keisha Walker MD PCP - General 00 07/23/22 Lucinda Roman MD [address] [place] [address] [id number] PCP - General Internal Medicine 07/24/22 documented as of this encounter
--- OUTSIDE RECORDS SUMMARY | 2025-07-22 07:29 | XMS_ITS | Encounter Summary ---
Author Organization [facility] Address [address] [place] [address] Care Team Providers Care Quality Systems Engineer Name Role Phone Keisha Walker MD Primary Care Provider [facility] Lucinda Mcgraw MD Primary Care Provider [phone] Encounter Details Date Type Department Care Team Description 05/16/2011 Roll Carrier Report Medical Records [address] [place] [address] Ermias Cao MD Social History Tobacco Use [...] on filedocumented in this encounter Care Teams Quality Systems Engineer Relationship Specialty Start Date End Date Keisha Walker MD PCP - General 00 07/23/22 Lucinda Roman MD [address] [place] [address] [id number] PCP - General Internal Medicine 07/24/22 documented as of this encounter
--- OUTSIDE RECORDS SUMMARY | 2025-07-22 07:29 | XMS_ITS | Encounter Summary ---
Author Organization [facility] Address [address] [place] [address] Care Team Providers Care Casing Mixer Name Role Phone Keisha Walker MD Primary Care Provider [facility] Lucinda Mcgraw MD Primary Care Provider [phone] Encounter Details Date Type Department Care Team Description 08/01/2018 Release of Information Medical Records [address] [place] [id number] Abstract, Provider Social History Tobacco Use Types [...] on filedocumented in this encounter Care Teams Casing Mixer Relationship Specialty Start Date End Date Keisha Walker MD PCP - General 00 07/23/22 Lucinda Roman MD [address] [place], [place] [phone] PCP - General Internal Medicine 07/24/22 documented as of this encounter
== END 2025-07-22 08:16 | disposition home or self-care (01) ==
LOC: HO.HSMS 07:26
PROVIDERS: PCP Nurse Practitioner Family; Visit Provider Nurse Practitioner Family
DX: R51.9 Headache, unspecified (principal); H53.2 Diplopia
CPT/HCPCS: 99214

== ENCOUNTER → 2025-07-22 07:25 | Outpatient (BNVA) | payer OTHER, SELFPAY | PROVIDERS: PCP Nurse Practitioner Family; Visit Provider Nurse Practitioner Family | DX: H53.2 Diplopia (principal); R51.9 Headache, unspecified | CPT/HCPCS: 99212 ==